=== PATIENT | male | born 1990 | race Hispanic/Latino ===

== ENCOUNTER 2017-10-10 11:30 | Emergency (ER) | payer BC, SELFPAY ==
--- NOTE | 2017-10-10 14:27 | ER ---
Nurse's Notes [facility] Name: Wally Mascorro Age: 27 yrs Sex: Male : 1990 Arrival Date: 10/10/2017 Time: 11:33 Bed Waiting Private MD: [place], None Diagnosis: Presentation: 10/10 11:43 Presenting complaint: Patient states: episodic epigastric pain lasting a few minutes x aa5 1 month ago. Pt reports nausea, denies vomiting, denies diarrhea. Transition of care: patient was not received from another setting of care. Onset of symptoms was September 2017. Risk Assessment: Do you want to hurt yourself or someone else? Patient reports no desire to harm self or others. Initial Sepsis Screen: Does the patient meet any 2 criteria? No. Patient's initial sepsis screen is negative. Does the patient have a suspected source of infection? No. Patient's initial sepsis screen is negative. Care prior to arrival: None. 11:43 Method Of Arrival: Ambulatory aa5 11:43 Acuity: LIBRADO 3 aa5 Historical: - Allergies: 11:43 No Known Allergies; aa5 - PMHx: 11:43 None; aa5 - PSHx: 11:43 None; aa5 - Immunization history:: Adult Immunizations up to date. - Social history:: Smoking status: Patient uses tobacco products, smokes one-half pack cigarettes per day. - Ebola Screening: : No symptoms or risks identified at this time. Vital Signs: 11:44 BP 124 / 86; Pulse 82; Resp 18 S; Temp 98.1(TE); Pulse Ox 97% on R/A; Weight 86.18 kg aa5 (R); Height 5 ft. 8 in. (172.72 cm) (R); Pain 9/10; 11:44 Body Mass Index 28.89 (86.18 kg, 172.72 cm) aa5 ED Course: 11:33 Patient arrived in ED. mr 11:33 None, None is Private Physician. mr 11:43 Triage completed. aa5 11:43 Arm band placed on. aa5 14:26 Alejandrina Isaac, RN is Primary Nurse. iw Administered Medications: No medications were administered Outcome: 14:25 Eloped from waiting room, before seeing physician Time discovered patient gone: October at 14:25 14:26 Patient left the ED. iw Signatures: Bettina Magana Irene, RN RN iw Marcia Crabtree, RN RN aa5
[2017-10-10 14:30] VITALS: BP 124/86; TEMP 98.1; O2SAT 97
== END 2017-10-10 14:26 | disposition left against medical advice (07) ==
LOC: ER 11:30
DX: Z53.21 Procedure and treatment not carried out due to patient leaving prior to being seen by health care provider (principal)
CPT/HCPCS: 99281

== ENCOUNTER 2017-12-25 23:35 | Emergency (ER) | payer SELFPAY ==
--- NOTE | 2017-12-26 00:06 | ER ---
Nurse's Notes [facility] Name: Wally Mascorro Age: 27 yrs Sex: Male : 1990 Arrival Date: 12/25/2017 Time: 23:36 Bed 15 Private MD: Diagnosis: Dental caries;Dentalgia Presentation: 12/25 23:53 Presenting complaint: Patient states: he is having a really bad toothache x 3 days he bb had dentist appt tomorrow but he can't sleep has tried motrin but nothing is helping. Transition of care: patient was not received from another setting of care. Onset of symptoms was December 22, 2017. Risk Assessment: Do you want to hurt yourself or someone else? Patient reports no desire to harm self or others. Initial Sepsis Screen: Does the patient meet any 2 criteria? No. Patient's initial sepsis screen is negative. Does the patient have a suspected source of infection? No. Patient's initial sepsis screen is negative. Care prior to arrival: None. 23:53 Method Of Arrival: Ambulatory bb 23:53 Acuity: LIBRADO 4 bb Historical: - Allergies: 23:56 No Known Allergies; bb - Home Meds: 23:56 None [Active]; bb - PMHx: 23:56 None; bb - PSHx: 23:56 dental; bb - Immunization history:: Adult Immunizations up to date. - Social history:: Smoking status: Patient uses tobacco products, smokes one-half pack cigarettes per day, Patient uses alcohol, occasionally. Patient/guardian denies using alcohol. - Ebola Screening: : No symptoms or risks identified at this time. Screenin/20 00:03 Abuse screen: Denies threats or abuse. Nutritional screening: No deficits noted. ea Tuberculosis screening: No symptoms or risk factors identified. Fall Risk None identified. Assessment: 00:01 General: Appears uncomfortable, Behavior is calm, cooperative, appropriate for age. ea Pain:. Neuro: Level of Consciousness is awake, alert, obeys commands, Oriented to person, place, time. Cardiovascular: Heart tones S1 S2 present Patient's skin is warm and dry. Respiratory: Airway is patent Respiratory effort is even, unlabored, Respiratory pattern is regular, symmetrical. GI: No signs and/or symptoms were reported involving the gastrointestinal system. : No signs and/or symptoms were reported regarding the genitourinary system. EENT: Reports toothache. Derm: Skin is pink, warm \T\ dry. 00:21 Reassessment: Patient and/or family updated on plan of care and expected duration. Pain ea level reassessed. Patient is alert, oriented x 3, equal unlabored respirations, skin warm/dry/pink. Discharge instructions given to patient, verbalized the understanding of instruction. Vital Signs: 12/25 23:56 BP 136 / 96; Pulse 54; Resp 16 S; Temp 98.5(O); Pulse Ox 99% on R/A; Weight 86.18 kg bb (R); Height 5 ft. 8 in. (172.72 cm) (R); Pain 10/10; 12/26 00:22 BP 128 / 88; Pulse 56; Resp 16; Pulse Ox 98% ; Pain 7/10; ea 12/25 23:56 Body Mass Index 28.89 (86.18 kg, 172.72 cm) bb ED Course: 12/25 23:36 Patient arrived in ED. am2 23:53 Ayad Waldron PA is PHCP. jr8 23:53 Damon Esquivel MD is Attending Physician. jr8 23:55 Triage completed. bb 23:56 Arm band placed on Patient placed in an exam room, on a stretcher, on pulse oximetry. bb Family accompanied patient. 12/26 00:01 Paulette Vidal, RN is Primary Nurse. ea 00:03 Patient has correct armband on for positive identification. Bed in low position. Call ea light in reach. 00:22 No provider procedures requiring assistance completed. Patient did not have IV access ea during this emergency room visit. Administered Medications: 00:11 Drug: TORadol 60 mg Route: IM; Site: right gluteus; ea 00:23 Follow up: Response: No adverse reaction; Pain is decreased ea 00:11 Drug: [place] 10 mg-325 mg 1 tabs Route: PO; ea 00:23 Follow up: Response: No adverse reaction ea Outcome: 00:05 Discharge ordered by . jr8 00:22 Discharged to home ambulatory, with friend. ea 00:22 Condition: improved 00:22 Discharge instructions given to patient, Instructed on discharge instructions, follow up and referral plans. medication usage, Demonstrated understanding of instructions, follow-up care, medications, Prescriptions given X 3. 00:24 Patient left the ED. ea Signatures: Veronica Johnson, RN RN Ayad Balbuena PA PA jr8 Bambi Barth am2 Paulette Vidal RN RN ea
--- NOTE | 2017-12-26 00:06 | EDPHYS ---
Physician Documentation [facility] Name: Wally Mascorro Age: 27 yrs Sex: Male : 1990 Arrival Date: 12/25/2017 Time: 23:36 Bed 15 Private MD: ED Physician Damon Esquivel HPI: 12/26 00:02 This 27 yrs old Male presents to ER via Ambulatory with complaints of jr8 Toothache. 00:02 The patient presents with pain. The problem is located in the mouth. Onset: The jr8 symptoms/episode began/occurred acutely, yesterday. Duration: The symptoms are continuous. Modifying factors: The symptoms are alleviated by nothing, the symptoms are aggravated by chewing, cold fluids, talking. Associated signs and symptoms: The patient has no apparent associated signs or symptoms. Severity of symptoms: At their worst the symptoms were moderate, in the emergency department the symptoms are unchanged. The patient has experienced a previous episode. The patient has not recently seen a physician. Historical: - Allergies: 12/25 23:56 No Known Allergies; bb - Home Meds: 23:56 None [Active]; bb - PMHx: 23:56 None; bb - PSHx: 23:56 dental; bb - Immunization history:: Adult Immunizations up to date. - Social history:: Smoking status: Patient uses tobacco products, smokes one-half pack cigarettes per day, Patient uses alcohol, occasionally. Patient/guardian denies using alcohol. - Ebola Screening: : No symptoms or risks identified at this time. ROS: 12/26 00:02 Eyes: Negative for injury, pain, redness, and discharge, Neck: Negative for injury, jr8 pain, and swelling, Cardiovascular: Negative for chest pain, palpitations, and edema, Respiratory: Negative for shortness of breath, cough, wheezing, and pleuritic chest pain, Abdomen/GI: Negative for abdominal pain, nausea, vomiting, diarrhea, and constipation, Back: Negative for injury and pain, MS/Extremity: Negative for injury and deformity, Skin: Negative for injury, rash, and discoloration, Neuro: Negative for headache, weakness, numbness, tingling, and seizure. ENT: Positive for dental pain. Exam: 00:02 Eyes: Pupils equal round and reactive to light, extra-ocular motions intact. Lids and jr8 lashes normal. Conjunctiva and sclera are non-icteric and not injected. Cornea within normal limits. Periorbital areas with no swelling, redness, or edema. Neck: Trachea midline, no thyromegaly or masses palpated, and no cervical lymphadenopathy. Supple, full range of motion without nuchal rigidity, or vertebral point tenderness. No Meningismus. Cardiovascular: Regular rate and rhythm with a normal S1 and S2. No gallops, murmurs, or rubs. Normal PMI, no JVD. No pulse deficits. Respiratory: Lungs have equal breath sounds bilaterally, clear to auscultation and percussion. No rales, rhonchi or wheezes noted. No increased work of breathing, no retractions or nasal flaring. Abdomen/GI: Soft, non-tender, with normal bowel sounds. No distension or tympany. No guarding or rebound. No evidence of tenderness throughout. Back: No spinal tenderness. No costovertebral tenderness. Full range of motion. Skin: Warm, dry with normal turgor. Normal color with no rashes, no lesions, and no evidence of cellulitis. MS/ Extremity: Pulses equal, no cyanosis. Neurovascular intact. Full, normal range of motion. Neuro: Awake and alert, GCS 15, oriented to person, place, time, and situation. Cranial nerves II-XII grossly intact. Motor strength 5/5 in all extremities. Sensory grossly intact. Cerebellar exam normal. Normal gait. 00:02 ENT: External ear(s): are unremarkable, Ear canal(s): are normal, clear, TM's: are normal, no evidence of bulging, no dullness, no erythema, no fluid levels, no hemotympanum, no rupture, normal bony landmarks, normal mobility, Nose: is normal, Mouth: Lips: moist, Oral mucosa: pink and intact, moist, Gums: reddened, swollen, on the lower left first molar, Tongue: is normal, Posterior pharynx: Airway: patent, Tonsils: are normal in appearance, no enlargement, no erythema, no exudate, no ulcerations, Uvula: midline, non-edematous, no erythema, swelling, is not appreciated, erythema, is not appreciated, Dental exam: dental caries, that is moderate, specifically in the lower left second molar (#18) and lower left first molar (#19), gum swelling, that is mild, specifically in the lower left first molar (#19), pain, that is moderate, specifically in the lower left first molar (#19). Vital Signs: 12/25 23:56 BP 136 / 96; Pulse 54; Resp 16 S; Temp 98.5(O); Pulse Ox 99% on R/A; Weight 86.18 kg bb (R); Height 5 ft. 8 in. (172.72 cm) (R); Pain 10/10; 12/26 00:22 BP 128 / 88; Pulse 56; Resp 16; Pulse Ox 98% ; Pain 7/10; ea 12/25 23:56 Body Mass Index 28.89 (86.18 kg, 172.72 cm) bb MDM: 12/25 23:59 Patient medically screened. jr8 12/26 00:02 Data reviewed: vital signs, nurses notes, and as a result, I will discharge patient. jr8 Data interpreted: Pulse oximetry: on room air is 99 %. Interpretation: normal. Counseling: I had a detailed discussion with the patient and/or guardian regarding: the historical points, exam findings, and any diagnostic results supporting the discharge/admit diagnosis, the need for outpatient follow up, a dentist, to return to the emergency department if symptoms worsen or persist or if there are any questions or concerns that arise at home. Administered Medications: 00:11 Drug: TORadol 60 mg Route: IM; Site: right gluteus; ea 00:23 Follow up: Response: No adverse reaction; Pain is decreased ea 00:11 Drug: [place] 10 mg-325 mg 1 tabs Route: PO; ea 00:23 Follow up: Response: No adverse reaction ea Disposition: 06:52 Co-signature as Attending Physician, Damon Esquivel MD I agree with the assessment and ps1 plan of care. Disposition: 12/26/17 00:05 Discharged to Home. Impression: Dental caries, Dentalgia . - Condition is Stable. - Discharge Instructions: Dental Abscess, Dental Caries, Adult. - Prescriptions for Amoxicillin 875 mg Oral Tablet - take 1 tablet by ORAL route every 12 hours for 10 days; 20 tablet. Ibuprofen 800 mg Oral Tablet - take 1 tablet by ORAL route every 12 hours As needed take with food; 20 tablet. Ultracet 37.5- 325 mg Oral Tablet - take 2 tablet by ORAL route every 6 hours - for up to 5 days; do not exceed 8 tablets per day.; 30 tablet. - Medication Reconciliation Form, Thank You Letter, Antibiotic Education, Prescription Opioid Use form. - Follow up: Private Physician; When: Tomorrow; Reason: Recheck today's complaints, Continuance of care, Re-evaluation by your physician. - Problem is new. - Symptoms have improved. Signatures: Veronica Johnson RN RN Ayad Balbuena PA PA jr8 Paulette Vidal RN RN ea Singer, Phillip, MD MD ps1 Corrections: (The following items were deleted from the chart) 00:24 00:05 12/26/2017 00:05 Discharged to Home. Impression: Dental caries; Dentalgia . ea Condition is Stable. Forms are Medication Reconciliation Form, Thank You Letter, Antibiotic Education, Prescription Opioid Use. Follow up: Private Physician; When: Tomorrow; Reason: Recheck today's complaints, Continuance of care, Re-evaluation by your physician. Problem is new. Symptoms have improved. jr8
[2017-12-26] MEDS ORDERED: HYDROCODONE/APAP 10/325 TAB ONE (00:11)
[2017-12-26] MEDS ORDERED: KETOROLAC 30 MG/ML INJ ONE (00:12)
[2017-12-26 00:37] VITALS: TEMP 98.5
[2017-12-26 00:38] VITALS: BP 128/88; O2SAT 98
== END 2017-12-26 00:24 | disposition home or self-care (01) ==
LOC: ER 23:35
DX: K02.9 Dental caries, unspecified (principal); F17.210 Nicotine dependence, cigarettes, uncomplicated
CPT/HCPCS: 96372; 99283

== ENCOUNTER 2018-08-30 22:14 | Emergency (ER) | payer SELFPAY ==
[2018-08-30 23:12] LABS: Absolute Monocytes 0.8 K/uL (0.1-1.3); Absolute Neutrophil 4.7 K/uL (1.8-8.0); Basophils % 0.5 % (0-1.3); Eosinophils % 1.7 % (0-4.4); Hematocrit 41.6 % (39.6-49.0); Lymphocytes % 34.3 % (15.3-44.8); MPV 8.9 fL (7.6-11.3); Monocytes % 8.9 % (3.3-12.3); RBC Red Blood Cell Count 4.61 M/uL (4.33-5.43)
[2018-08-30 23:18] LABS: Urine Blood 2+ (NEG); Urine Glucose NEGATIVE (NEG); Urine Protein TRACE (NEG); Urine Specific Gravity >1.030 (1.005-1.030); Urine pH 5.5 (5.0-7.0)
[2018-08-30] MEDS ORDERED: ONDANSETRON 4 MG/2 ML VIAL ONE (23:31)
[2018-08-30] MEDS ORDERED: FAMOTIDINE 20 MG/2 ML VIAL IV ONE (23:31)
[2018-08-30] MEDS ORDERED: NA CHLORIDE 0.9% 1,000 ML ONE (23:31)
[2018-08-30 23:33] LABS: Bilirubin Direct 0.1 mg/dL (0-0.2); Bilirubin Total 0.3 mg/dL (0.2-1.0); Potassium 3.8 mmol/L (3.5-5.1); Protein, Total 7.5 g/dL (6.4-8.2)
[2018-08-30 23:59] LABS: Urine Bacteria <20 /HPF (NONE SEEN); Urine Culture Reflex Order NOT NEEDED; Urine Mucus 3+ /HPF (NONE SEEN); Urine RBC <5 /HPF (NONE SEEN)
--- NOTE | 2018-08-31 00:57 | EDPHYS ---
Physician Documentation [facility] Name: Wally Mascorro Age: 28 yrs Sex: Male : 1990 Arrival Date: 08/30/2018 Time: 22:14 Bed 30 Private MD: ED Physician En Medrano HPI: 08/30 22:55 This 28 yrs old Male presents to ER via Ambulatory with complaints of Fever, cp Vomiting. 22:55 The patient reports fever, not measured (subjective). cp 22:55 Onset: The symptoms/episode began/occurred today, while at work. Associated signs and cp symptoms: Pertinent positives: nausea, vomiting, epigastric pain. Severity of symptoms: in the emergency department the symptoms have improved mildly. Patient reports he was at work this afternoon when he started having nausea and vomiting. Patient reports having fever and abdominal pain. Historical: - Allergies: 22:24 No Known Allergies; ed1 - Home Meds: 22:24 None [Active]; ed1 - PMHx: 22:24 None; ed1 - PSHx: 22:24 None; ed1 - Immunization history:: Adult Immunizations up to date. - Social history:: Smoking status: Patient uses tobacco products, smokes one-half pack cigarettes per day. - Ebola Screening: : Patient negative for fever greater than or equal to 101.5 degrees Fahrenheit, and additional compatible Ebola Virus Disease symptoms Patient denies exposure to infectious person Patient denies travel to an Ebola-affected area in the 21 days before illness onset No symptoms or risks identified at this time. ROS: 23:00 Constitutional: Negative for body aches, chills, fever, poor PO intake. cp 23:00 Eyes: Negative for injury, pain, redness, and discharge. cp 23:00 ENT: Negative for drainage from ear(s), ear pain, sore throat, difficulty swallowing, difficulty handling secretions. 23:00 Cardiovascular: Negative for chest pain, palpitations. 23:00 Respiratory: Negative for cough, shortness of breath, wheezing. 23:00 Abdomen/GI: Positive for abdominal pain, nausea, vomiting, of the epigastric area, Negative for diarrhea, constipation, anorexia, hematemesis, black/tarry stool, rectal bleeding. 23:00 Back: Negative for pain at rest, pain with movement, radiated pain. 23:00 : Negative for urinary symptoms, testicular pain 23:00 Skin: Negative for cellulitis, rash. 23:00 Neuro: Negative for altered mental status, headache, weakness. 23:00 All other systems are negative. Exam: 23:05 Constitutional: The patient appears in no acute distress, alert, awake, non-toxic, well cp developed, well nourished. 23:05 Head/Face: Normocephalic, atraumatic. cp 23:05 Eyes: Periorbital structures: appear normal, Conjunctiva: normal, no exudate, no injection, Sclera: no appreciated abnormality, Lids and lashes: appear normal, bilaterally. 23:05 ENT: External ear(s): are unremarkable, Ear canal(s): are normal, clear, TM's: are normal, Nose: is normal, Mouth: Lips: moist, Oral mucosa: moist, Posterior pharynx: is normal, airway is patent, no erythema, no exudate. 23:05 Chest/axilla: Inspection: normal, Palpation: is normal, no crepitus, no tenderness. 23:05 Cardiovascular: Rate: normal, Rhythm: regular. 23:05 Respiratory: the patient does not display signs of respiratory distress, Respirations: normal, no use of accessory muscles, no retractions, no splinting, no tachypnea, labored breathing, is not present, Breath sounds: are clear throughout, no decreased breath sounds, no stridor, no wheezing. 23:05 Abdomen/GI: Inspection: abdomen appears normal, Bowel sounds: active, all quadrants, Palpation: soft, in all quadrants, mild abdominal tenderness, in the epigastric area, rebound tenderness, is not appreciated, voluntary guarding, is not appreciated, involuntary guarding, is not appreciated. 23:05 Back: pain, is absent, ROM is normal. Vital Signs: 22:24 BP 122 / 81; Pulse 72; Resp 16; Temp 98.3(O); Pulse Ox 98% on R/A; Weight 83.91 kg; ed1 Height 5 ft. 8 in. (172.72 cm); Pain 3/10; 23:10 BP 103 / 75; Pulse 70; Resp 18; Pulse Ox 100% on R/A; Pain 4/10; mg2 08/31 00:18 BP 104 / 74; Pulse 65; Resp 18; Pulse Ox 100% on R/A; Pain 0/10; mg2 08/30 22:24 Body Mass Index 28.13 (83.91 kg, 172.72 cm) ed1 MDM: 08/30 22:28 Patient medically screened. 08/31 00:00 Differential diagnosis: gastroenteritis, cholelithiasis, pancreatitis, gastritis. cp 00:55 Data reviewed: vital signs, nurses notes, lab test result(s), radiologic studies, plain cp films, and as a result, I will discharge patient. 00:55 Counseling: I had a detailed discussion with the patient and/or guardian regarding: the cp historical points, exam findings, and any diagnostic results supporting the discharge/admit diagnosis, lab results, radiology results, to return to the emergency department if symptoms worsen or persist or if there are any questions or concerns that arise at home. Special discussion: Based on the patient's Hx, exam, and Dx evaluation, there is no indication for emergent surgery or inpatient Tx. It is understood by the patient/guardian that if the Sx's persist or worsen they need to return immediately for re-evaluation. ED course: VSS. Nausea and pain improved with meds. Will discharge to home for continued monitoring. 08/30 22:50 Order name: Basic Metabolic Panel; Complete Time: 23:54 mg2 08/30 23:54 Interpretation: Normal except: CL 109; GFR 76. 08/30 22:50 Order name: CBC with Diff; Complete Time: 23:54 mg2 08/30 23:55 Interpretation: Reviewed. 08/30 22:50 Order name: Creatinine for Radiology; Complete Time: 23:54 mg2 08/30 22:50 Order name: Hepatic Function; Complete Time: 23:54 mg2 08/30 23:55 Interpretation: Within normal limits. 08/30 22:50 Order name: Lipase; Complete Time: 23:54 mg2 08/30 23:55 Interpretation: Within normal limits: LIP 138. 08/30 23:06 Order name: Urine Microscopic Only; Complete Time: 00:09 mg2 08/31 00:09 Interpretation: Abnormal: MUCUS 3+. 08/30 22:50 Order name: IV Saline Lock; Complete Time: 23:06 mg2 08/30 23:13 Order name: Urine Dipstick--Ancillary (enter results); Complete Time: 23:54 mw2 08/30 23:54 Interpretation: Normal except: USPGR >1.030; UBLD 2+. cp 08/30 23:19 Order name: Creatine Phosphokinase; Complete Time: 23:54 EDMS 08/30 23:55 Interpretation: Abnormal: CPK 319. cp 08/31 00:11 Order name: XRAY Abdomen With Erect cp 08/30 22:50 Order name: Labs collected and sent; Complete Time: 23:06 mg2 08/30 23:06 Order name: Urine Dipstick-Ancillary (obtain specimen); Complete Time: 23:06 mg2 08/30 23:56 Order name: PO challenge; Complete Time: 00:07 cp Administered Medications: 08/30 23:25 Drug: Pepcid 20 mg Route: IVP; Site: right antecubital; mg2 23:49 Follow up: Response: No adverse reaction; Marked relief of symptoms mg2 23:26 Drug: NS 0.9% 1000 ml Route: IV; Rate: 1 bolus; Site: right antecubital; mg2 23:49 Follow up: Response: No adverse reaction; IV Status: Completed infusion mg2 23:26 Drug: Zofran 4 mg Route: IVP; Site: right antecubital; mg2 23:49 Follow up: Response: No adverse reaction; Marked relief of symptoms mg2 Disposition: 08/31/18 00:56 Discharged to Home. Impression: Vomiting, unspecified, Epigastric pain. - Condition is Stable. - Discharge Instructions: Abdominal Pain, Adult, Vomiting, Adult. - Prescriptions for Pepcid 20 mg Oral Tablet - take 1 tablet by ORAL route every 12 hours for 5 days; 10 tablet. Zofran 4 mg Oral Tablet - take 1 tablet by ORAL route every 12 hours As needed; 20 tablet. - Work release form, Medication Reconciliation Form, Thank You Letter, Antibiotic Education, Prescription Opioid Use form. - Follow up: Private Physician; When: 1 - 2 days; Reason: Worsening of condition. - Problem is new. - Symptoms have improved. Addendum: 09/02/2018 07:24 Co-signature as Attending Physician, En Medrano MD. r n Signatures: Dispatcher [employer] EDIN En Medrano MD MD rn Riggs, Erika RN RN ed1 Georges Walker PA PA Kartik Nicolas RN RN mg2 Corrections: (The following items were deleted from the chart) 08/30 23:18 23:16 CREATINE PHOSPHOKINASE+[id number].LAB.BRZ ordered. EDIN EDMS 08/31 01:06 00:56 08/31/2018 00:56 Discharged to Home. Impression: Vomiting, unspecified; mg2 Epigastric pain. Condition is Stable. Forms are Medication Reconciliation Form, Thank You Letter, Antibiotic Education, Prescription Opioid Use. Follow up: Private Physician; When: 1 - 2 days; Reason: Worsening of condition. Problem is new. Symptoms have improved. cp
--- NOTE | 2018-08-31 00:57 | ER ---
Nurse's Notes [facility] Name: Wally Mascorro Age: 28 yrs Sex: Male : 1990 Arrival Date: 08/30/2018 Time: 22:14 Bed 30 Private MD: Diagnosis: Vomiting, unspecified;Epigastric pain Presentation: 08/30 22:23 Presenting complaint: Patient states: I was at work today and I didn't eat anything for ed1 breakfast and then after lunch I went back to work and got really hot and started vomiting. Transition of care: patient was not received from another setting of care. Onset of symptoms was August 30, 2018. Risk Assessment: Do you want to hurt yourself or someone else? Patient reports no desire to harm self or others. Initial Sepsis Screen: Does the patient meet any 2 criteria? No. Patient's initial sepsis screen is negative. Does the patient have a suspected source of infection? No. Patient's initial sepsis screen is negative. Care prior to arrival: None. 22:23 Method Of Arrival: Ambulatory ed1 22:23 Acuity: LIBRADO 3 ed1 Triage Assessment: 22:24 General: Appears in no apparent distress. Behavior is calm, cooperative. Pain: ed1 Complains of pain in abdomen Pain currently is 3 out of 10 on a pain scale. GI: Reports vomiting. Historical: - Allergies: 22:24 No Known Allergies; ed1 - Home Meds: 22:24 None [Active]; ed1 - PMHx: 22:24 None; ed1 - PSHx: 22:24 None; ed1 - Immunization history:: Adult Immunizations up to date. - Social history:: Smoking status: Patient uses tobacco products, smokes one-half pack cigarettes per day. - Ebola Screening: : Patient negative for fever greater than or equal to 101.5 degrees Fahrenheit, and additional compatible Ebola Virus Disease symptoms Patient denies exposure to infectious person Patient denies travel to an Ebola-affected area in the 21 days before illness onset No symptoms or risks identified at this time. Screenin:09 Abuse screen: Denies threats or abuse. Denies injuries from another. Nutritional mg2 screening: No deficits noted. Tuberculosis screening: No symptoms or risk factors identified. Fall Risk IV access (20 points). Assessment: 23:07 General: Appears in no apparent distress. comfortable, Behavior is calm, cooperative. mg2 Pain: Complains of pain in abdomen Pain does not radiate. Pain currently is 4 out of 10 on a pain scale. Quality of pain is described as aching, Pain began gradually, this afternoon Is intermittent. Neuro: Level of Consciousness is awake, alert, obeys commands, Oriented to person, place, time, situation. Cardiovascular: Capillary refill < 3 seconds Patient's skin is warm and dry. Respiratory: Airway is patent Respiratory effort is even, unlabored, Respiratory pattern is regular, symmetrical. GI: Abdomen is flat, non-distended, Reports lower abdominal pain, upper abdominal pain, nausea, vomiting, since afternoon. : Urine is clear. EENT: No signs and/or symptoms were reported regarding the EENT system. Derm: Skin is intact, is healthy with good turgor, Skin is pink, warm \T\ dry. normal. Musculoskeletal: Circulation, motion, and sensation intact. Capillary refill < 3 seconds. 08/31 01:05 Reassessment: Patient appears in no apparent distress at this time. Patient and/or mg2 family updated on plan of care and expected duration. Pain level reassessed. Patient is alert, oriented x 3, equal unlabored respirations, skin warm/dry/pink. Patient denies pain at this time. Patient states feeling better. Vital Signs: 08/30 22:24 BP 122 / 81; Pulse 72; Resp 16; Temp 98.3(O); Pulse Ox 98% on R/A; Weight 83.91 kg; ed1 Height 5 ft. 8 in. (172.72 cm); Pain 3/10; 23:10 BP 103 / 75; Pulse 70; Resp 18; Pulse Ox 100% on R/A; Pain 4/10; mg2 08/31 00:18 BP 104 / 74; Pulse 65; Resp 18; Pulse Ox 100% on R/A; Pain 0/10; mg2 08/30 22:24 Body Mass Index 28.13 (83.91 kg, 172.72 cm) ed1 ED Course: 08/30 22:14 Patient arrived in ED. am2 22:24 Triage completed. ed1 22:24 Arm band placed on right wrist. Patient placed in waiting room, Patient notified of ed1 wait time. 22:28 Georges Walker PA is PHCP. cp 22:28 En Medrano MD is Attending Physician. cp 22:47 Kartik Chacko, RN is Primary Nurse. mg2 23:09 No provider procedures requiring assistance completed. Inserted saline lock: 20 gauge mg2 in right antecubital area, using aseptic technique. Blood collected. 23:10 Patient has correct armband on for positive identification. Bed in low position. Side mg2 rails up X 1. Pulse ox on. NIBP on. Door closed. Warm blanket given. 08/31 00:33 Patient moved to radiology via wheelchair. kw 00:33 X-ray completed. Patient tolerated procedure well. kw 00:33 Patient moved back from radiology. kw 00:34 XRAY Abdomen With Erect In Process Unspecified. EDMS 01:05 IV discontinued, intact, bleeding controlled, No redness/swelling at site. Pressure mg2 dressing applied. Administered Medications: 08/30 23:25 Drug: Pepcid 20 mg Route: IVP; Site: right antecubital; mg2 23:49 Follow up: Response: No adverse reaction; Marked relief of symptoms mg2 23:26 Drug: NS 0.9% 1000 ml Route: IV; Rate: 1 bolus; Site: right antecubital; mg2 23:49 Follow up: Response: No adverse reaction; IV Status: Completed infusion mg2 23:26 Drug: Zofran 4 mg Route: IVP; Site: right antecubital; mg2 23:49 Follow up: Response: No adverse reaction; Marked relief of symptoms mg2 Outcome: 08/31 00:56 Discharge ordered by . cp 01:05 Discharged to home ambulatory. mg2 01:05 Condition: stable 01:05 Discharge instructions given to patient, Instructed on discharge instructions, follow up and referral plans. medication usage, Demonstrated understanding of instructions, follow-up care, medications, Prescriptions given X 2. 01:06 Patient left the ED. mg2 Signatures: Dispatcher [employer] EDMS Jessika Fermin RN RN ed1 Joleen Montanez Corey, PA PA Bambi Reyna am2 Kartik Chacko, RN RN mg2
[2018-08-31 02:06] VITALS: TEMP 98.3
[2018-08-31 02:08] VITALS: O2SAT 100
[2018-08-31 02:10] VITALS: BP 104/74
--- NOTE | 2018-08-31 08:32 | RAD REPORT ---
EXAM DESCRIPTION: RAD - Abdomen W Erect - 08/31/2018 12:36 am CLINICAL HISTORY: Abdominal pain FINDINGS: The bowel gas pattern is unremarkable with moderate amount of stool throughout the colon. No abnormal calcification is displayed.
== END 2018-08-31 01:06 | disposition home or self-care (01) ==
LOC: ER 22:14
DX: R11.2 Nausea with vomiting, unspecified (principal); R10.13 Epigastric pain; F17.210 Nicotine dependence, cigarettes, uncomplicated
CPT/HCPCS: 36415; 74019; 80048; 80076; 81003; 81015; 82550; 83690; 85025; 96374; 96375; 99284; J2405; J7030

== ENCOUNTER 2018-09-12 19:37 | Emergency (ER) | payer SELFPAY ==
--- NOTE | 2018-09-12 21:03 | EDPHYS ---
Physician Documentation [facility] Name: Wally Mascorro Age: 28 yrs Sex: Male : 1990 Arrival Date: 09/12/2018 Time: 19:39 Bed 25 Private MD: ED Physician Thomas Zaldivar HPI: 09/12 21:03 This 28 yrs old Male presents to ER via Ambulatory with complaints of Cough, tw4 Sore Throat. 21:03 The patient or guardian reports cough, that is constant. The patient or guardian tw4 reports SORE THROAT. Onset: The symptoms/episode began/occurred today. Severity of symptoms: At their worst the symptoms were moderate, in the emergency department the symptoms are unchanged. Modifying factors: The symptoms are alleviated by nothing, the symptoms are aggravated by nothing. Associated signs and symptoms: The patient has no apparent associated signs or symptoms. The patient has not experienced similar symptoms in the past. Historical: - Allergies: 19:45 No Known Allergies; ed1 - Home Meds: 19:45 None [Active]; ed1 - PMHx: 19:45 None; ed1 - PSHx: 19:45 None; ed1 - Immunization history:: Adult Immunizations unknown. - Social history:: Smoking status: Patient uses tobacco products, smokes one-half pack cigarettes per day. - Ebola Screening: : Patient negative for fever greater than or equal to 101.5 degrees Fahrenheit, and additional compatible Ebola Virus Disease symptoms Patient denies exposure to infectious person Patient denies travel to an Ebola-affected area in the 21 days before illness onset No symptoms or risks identified at this time. ROS: 21:03 Constitutional: Negative for fever, chills, and weight loss, Eyes: Negative for injury, tw4 pain, redness, and discharge, Cardiovascular: Negative for chest pain, palpitations, and edema, Abdomen/GI: Negative for abdominal pain, nausea, vomiting, diarrhea, and constipation, Back: Negative for injury and pain, MS/Extremity: Negative for injury and deformity, Skin: Negative for injury, rash, and discoloration. 21:03 Respiratory: Positive for cough, Negative for dyspnea on exertion, hemoptysis, orthopnea, pleurisy, shortness of breath, sputum production. Exam: 21:03 Constitutional: This is a well developed, well nourished patient who is awake, alert, tw4 and in no acute distress. Head/Face: Normocephalic, atraumatic. Neck: Trachea midline, no thyromegaly or masses palpated, and no cervical lymphadenopathy. Supple, full range of motion without nuchal rigidity, or vertebral point tenderness. No Meningismus. Chest/axilla: Normal chest wall appearance and motion. Nontender with no deformity. No lesions are appreciated. Cardiovascular: Regular rate and rhythm with a normal S1 and S2. No gallops, murmurs, or rubs. Normal PMI, no JVD. No pulse deficits. Respiratory: Lungs have equal breath sounds bilaterally, clear to auscultation and percussion. No rales, rhonchi or wheezes noted. No increased work of breathing, no retractions or nasal flaring. 21:03 ENT: Posterior pharynx: erythema, that is moderate. Vital Signs: 19:45 BP 125 / 69; Pulse 72; Resp 20; Temp 98.1(TE); Pulse Ox 98% on R/A; Weight 83.91 kg; ed1 Height 5 ft. 8 in. (172.72 cm); Pain 6/10; 20:00 BP 140 / 84; Pulse 80; Resp 18; Temp 98.2(O); Pulse Ox 98% on R/A; rv 20:45 BP 125 / 70; Pulse 72; Resp 19 S; Temp 98.3(O); Pulse Ox 99% on R/A; rv 20:45 BP 135 / 81; Pulse 77; Resp 17 S; Temp 98.2(O); Pulse Ox 98% on R/A; rv 21:15 BP 141 / 89; Pulse 80; Resp 18 S; Temp 98.2(O); Pulse Ox 100% on R/A; rv 19:45 Body Mass Index 28.13 (83.91 kg, 172.72 cm) ed1 MDM: 20:03 Patient medically screened. tw4 21:03 Differential Diagnosis: Obstructed Airway. Data reviewed: vital signs, nurses notes. tw4 Data interpreted: Pulse oximetry: Interpretation: normal. Counseling: I had a detailed discussion with the patient and/or guardian regarding: the historical points, exam findings, and any diagnostic results supporting the discharge/admit diagnosis. Special discussion: I discussed with the patient/guardian in detail that at this point there is no indication for admission to the hospital. It is understood, however, that if the symptoms persist or worsen the patient needs to return immediately for re-evaluation. 09/12 20:03 Order name: Strep; Complete Time: 21:01 tw4 09/12 20:29 Order name: Flu tw4 09/12 21:02 Order name: Throat Culture EDMS Administered Medications: No medications were administered Disposition: 09/12/18 21:03 Discharged to Home. Impression: Acute pharyngitis due to other specified organisms. - Condition is Stable. - Discharge Instructions: Pharyngitis, Sore Throat. - Medication Reconciliation Form, Thank You Letter, Antibiotic Education, Prescription Opioid Use, Work release form form. - Follow up: Private Physician; When: Upon discharge from the Emergency Department; Reason: If symptoms return, Recheck today's complaints, Continuance of care. - Problem is new. - Symptoms have improved. Signatures: Dispatcher [employer] EDMS Jessika Fermin RN RN ed1 Thomas Zaldivar MD MD tw4 Keaton Dickinson RN RN rv Corrections: (The following items were deleted from the chart) 21:33 21:03 09/12/2018 21:03 Discharged to Home. Impression: Acute pharyngitis due to other rv specified organisms. Condition is Stable. Forms are Medication Reconciliation Form, Thank You Letter, Antibiotic Education, Prescription Opioid Use. Follow up: Private Physician; When: Upon discharge from the Emergency Department; Reason: If symptoms return, Recheck today's complaints, Continuance of care. Problem is new. Symptoms have improved. tw4
--- NOTE | 2018-09-12 21:03 | ER ---
Nurse's Notes [facility] Name: Wally Mascorro Age: 28 yrs Sex: Male : 1990 Arrival Date: 09/12/2018 Time: 19:39 Bed 25 Private MD: Diagnosis: Acute pharyngitis due to other specified organisms Presentation: 09/12 19:44 Presenting complaint: Patient states: My kids have been sick with strep throat and I am ed1 having the same symptoms now. Transition of care: patient was not received from another setting of care. Onset of symptoms was September 09, 2018. Risk Assessment: Do you want to hurt yourself or someone else? Patient reports no desire to harm self or others. Initial Sepsis Screen: Does the patient meet any 2 criteria? No. Patient's initial sepsis screen is negative. Does the patient have a suspected source of infection? No. Patient's initial sepsis screen is negative. Care prior to arrival: None. 19:44 Method Of Arrival: Ambulatory ed1 19:44 Acuity: LIBRADO 4 ed1 Triage Assessment: 19:45 General: Appears in no apparent distress. Behavior is calm, cooperative. Pain: ed1 Complains of pain in throat Pain currently is 6 out of 10 on a pain scale. EENT: Reports nasal congestion pain when swallowing. Historical: - Allergies: 19:45 No Known Allergies; ed1 - Home Meds: 19:45 None [Active]; ed1 - PMHx: 19:45 None; ed1 - PSHx: 19:45 None; ed1 - Immunization history:: Adult Immunizations unknown. - Social history:: Smoking status: Patient uses tobacco products, smokes one-half pack cigarettes per day. - Ebola Screening: : Patient negative for fever greater than or equal to 101.5 degrees Fahrenheit, and additional compatible Ebola Virus Disease symptoms Patient denies exposure to infectious person Patient denies travel to an Ebola-affected area in the 21 days before illness onset No symptoms or risks identified at this time. Screenin:58 Abuse screen: Denies threats or abuse. Denies injuries from another. Nutritional rv screening: No deficits noted. Tuberculosis screening: No symptoms or risk factors identified. Fall Risk None identified. Assessment: 19:58 General: Appears in no apparent distress. comfortable, Behavior is calm, cooperative. rv Pain: Denies pain. Neuro: Level of Consciousness is awake, alert, obeys commands, Oriented to person, place, time, situation. Cardiovascular: Capillary refill < 3 seconds. Respiratory: Airway is patent Respiratory effort is even, unlabored, Breath sounds are clear. GI: No signs and/or symptoms were reported involving the gastrointestinal system. : No signs and/or symptoms were reported regarding the genitourinary system. EENT: Throat is clear. Derm: Skin is intact. Musculoskeletal: No signs and/or symptoms reported regarding the musculoskeletal system. 21:00 Reassessment: Patient appears in no apparent distress at this time. Patient and/or rv family updated on plan of care and expected duration. Pain level reassessed. Patient is alert, oriented x 3, equal unlabored respirations, skin warm/dry/pink. Vital Signs: 19:45 BP 125 / 69; Pulse 72; Resp 20; Temp 98.1(TE); Pulse Ox 98% on R/A; Weight 83.91 kg; ed1 Height 5 ft. 8 in. (172.72 cm); Pain 6/10; 20:00 BP 140 / 84; Pulse 80; Resp 18; Temp 98.2(O); Pulse Ox 98% on R/A; rv 20:45 BP 125 / 70; Pulse 72; Resp 19 S; Temp 98.3(O); Pulse Ox 99% on R/A; rv 20:45 BP 135 / 81; Pulse 77; Resp 17 S; Temp 98.2(O); Pulse Ox 98% on R/A; rv 21:15 BP 141 / 89; Pulse 80; Resp 18 S; Temp 98.2(O); Pulse Ox 100% on R/A; rv 19:45 Body Mass Index 28.13 (83.91 kg, 172.72 cm) ed1 ED Course: 19:39 Patient arrived in ED. am2 19:45 Triage completed. ed1 19:45 Arm band placed on right wrist. ed1 19:58 Patient has correct armband on for positive identification. Placed in gown. Bed in low rv position. Call light in reach. Side rails up X 1. Pulse ox on. NIBP on. Warm blanket given. 20:03 Thomas Zaldivar MD is Attending Physician. tw4 20:27 Fanny Hernandez, RN is Primary Nurse. ca1 21:25 Keaton Dickinson, RN is Primary Nurse. rv 21:33 No provider procedures requiring assistance completed. Patient did not have IV access rv during this emergency room visit. Administered Medications: No medications were administered Outcome: 21:03 Discharge ordered by . tw4 21:33 Discharged to home ambulatory. rv 21:33 Condition: stable 21:33 Discharge instructions given to patient, Instructed on discharge instructions, follow up and referral plans. Demonstrated understanding of instructions, follow-up care. 21:33 Patient left the ED. rv Signatures: Jessika Fermin RN RN ed1 Bambi Barth am2 Thomas Zaldivar MD MD tw4 Keaton Dickinson, RN RN rv Fanny Hernandez, BEBE RN ca1
[2018-09-12 22:45] VITALS: TEMP 98.2
[2018-09-12 22:48] VITALS: BP 141/89; O2SAT 100
== END 2018-09-12 21:33 | disposition home or self-care (01) ==
LOC: ER 19:37
DX: J02.8 Acute pharyngitis due to other specified organisms (principal); F17.210 Nicotine dependence, cigarettes, uncomplicated
CPT/HCPCS: 87070; 87081; 87804; 99283

== ENCOUNTER 2019-05-19 14:24 | Emergency (ER) | payer SELFPAY ==
--- OUTSIDE RECORDS SUMMARY | 2019-05-19 14:26 | XMS REPORT ---
:1990 [facility] Address [address] [place] [address] Dr. [place] [address] [place] [id number] Care Team Providers Name Role Phone Unavailable Unavailable Unavailable Problems This patient has no known problems. Allergies, Adverse Reactions, Alerts This patient has no known allergies or adverse reactions. Medications This patient has no known medications.
[2019-05-19] MEDS ORDERED: TETANUS & DIPHTHERIA TOX,ADULT 0.5 ML VIAL ONE (14:45)
[2019-05-19] MEDS ORDERED: AMOX/K CLAV 875 MG TAB ONE (14:45)
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
--- NOTE | 2019-05-19 16:01 | RAD REPORT ---
EXAM DESCRIPTION: RAD - Hand Right 3 View - 05/19/2019 3:36 pm CLINICAL HISTORY: Right hand pain following trauma, pain primarily fourth digit COMPARISON: April 2014 FINDINGS: No fracture is identified. There is no dislocation or periosteal reaction noted. Soft tis marisol swelling involves the fourth digit. No air or foreign body. IMPRESSION: No right hand fracture identified. Soft tissue swelling of the fourth digit noted.
[2019-05-19 16:12] VITALS: BP 116/83; TEMP 98.8; O2SAT 99
== END 2019-05-19 15:23 | disposition home or self-care (01) ==
LOC: ER 14:24
DX: S60.221A Contusion of right hand, initial encounter (principal); S60.511A Abrasion of right hand, initial encounter; W51.XXXA Accidental striking against or bumped into by another person, initial encounter; Y93.89 Activity, other specified; Y92.9 Unspecified place or not applicable; Z23 Encounter for immunization
CPT/HCPCS: 90471; 90714; 99284

== ENCOUNTER 2019-12-21 15:07 | Emergency (ER) | payer SELFPAY ==
--- OUTSIDE RECORDS SUMMARY | 2019-12-21 15:09 | XMS REPORT | Continuity of Care Document ---
:1990 Author Organization [facility] t Address [address] [place] [address] Dr. [place] [address] [place] [id number] Care Team Providers Name Role Phone Unavailable Unavailable Unavailable Problems This patient has no known problems. Allergies, Adverse Reactions, Alerts This patient has no known allergies or adverse reactions. Medications This patient has no known medications. Procedures This patient has no known procedures. Results This patient has no known results.
[2019-12-21] MEDS ORDERED: HYDROCODONE/APAP 5/325 MG TAB ONE (16:32)
[2019-12-21] MEDS ORDERED: KETOROLAC 30 MG/ML INJ ONE ×2 (16:32→16:39)
--- NOTE | 2019-12-21 17:14 | EDPHYS ---
Physician Documentation [facility] Name: Wally Mascorro Age: 29 yrs Sex: Male : 1990 Arrival Date: 12/21/2019 Time: 15:11 Bed 26 Private MD: ED Physician Long Taylor HPI: 12/20 16:58 This 29 yrs old Male presents to ER via Ambulatory with complaints of Hand snw Swelling. 16:58 The patient or guardian reports swelling, tenderness. The complaints affect the right snw hand diffusely. Context: The problem was sustained at an unknown location, resulted from an unknown cause. Onset: The symptoms/episode began/occurred suddenly. Modifying factors: The symptoms are alleviated by nothing, the symptoms are aggravated by movement, dependent position. Severity of symptoms: At their worst the symptoms were moderate, in the emergency department the symptoms are unchanged. The patient has not experienced similar symptoms in the past. The patient has not recently seen a physician. Historical: - Allergies: 15:29 No Known Allergies; jd3 - Home Meds: 15:29 None [Active]; jd3 - PMHx: 15:29 None; jd3 - PSHx: 15:29 None; jd3 - Immunization history:: Adult Immunizations up to date. - Social history:: Smoking status: Patient reports the use of cigarette tobacco products, smokes one pack cigarettes per day. ROS: 16:57 Constitutional: Negative for fever, chills, and weight loss, Eyes: Negative for injury, snw pain, redness, and discharge, ENT: Negative for injury, pain, and discharge, Neck: Negative for injury, pain, and swelling, Cardiovascular: Negative for chest pain, palpitations, and edema, Respiratory: Negative for shortness of breath, cough, wheezing, and pleuritic chest pain, Abdomen/GI: Negative for abdominal pain, nausea, vomiting, diarrhea, and constipation, Back: Negative for injury and pain, : Negative for injury, bleeding, discharge, and swelling, Skin: Negative for injury, rash, and discoloration, Neuro: Negative for headache, weakness, numbness, tingling, and seizure, Psych: Negative for depression, anxiety, suicide ideation, homicidal ideation, and hallucinations. 16:57 MS/extremity: Positive for decreased range of motion, swelling, tenderness, Negative for injury or acute deformity. Exam: 16:56 Constitutional: This is a well developed, well nourished patient who is awake, alert, snw and in no acute distress. Head/Face: Normocephalic, atraumatic. Eyes: Pupils equal round and reactive to light, extra-ocular motions intact. Lids and lashes normal. Conjunctiva and sclera are non-icteric and not injected. Cornea within normal limits. Periorbital areas with no swelling, redness, or edema. ENT: Nares patent. No nasal discharge, no septal abnormalities noted. Tympanic membranes are normal and external auditory canals are clear. Oropharynx with no redness, swelling, or masses, exudates, or evidence of obstruction, uvula midline. Mucous membranes moist. Neck: Trachea midline, no thyromegaly or masses palpated, and no cervical lymphadenopathy. Supple, full range of motion without nuchal rigidity, or vertebral point tenderness. No Meningismus. Chest/axilla: Normal chest wall appearance and motion. Nontender with no deformity. No lesions are appreciated. Cardiovascular: Regular rate and rhythm with a normal S1 and S2. No gallops, murmurs, or rubs. Normal PMI, no JVD. No pulse deficits. Respiratory: Lungs have equal breath sounds bilaterally, clear to auscultation and percussion. No rales, rhonchi or wheezes noted. No increased work of breathing, no retractions or nasal flaring. Abdomen/GI: Soft, non-tender, with normal bowel sounds. No distension or tympany. No guarding or rebound. No evidence of tenderness throughout. Back: No spinal tenderness. No costovertebral tenderness. Full range of motion. Skin: Warm, dry with normal turgor. Normal color with no rashes, no lesions, and no evidence of cellulitis. Neuro: Awake and alert, GCS 15, oriented to person, place, time, and situation. Cranial nerves II-XII grossly intact. Motor strength 5/5 in all extremities. Sensory grossly intact. Cerebellar exam normal. Normal gait. Psych: Awake, alert, with orientation to person, place and time. Behavior, mood, and affect are within normal limits. 16:56 Musculoskeletal/extremity: Extremities: grossly normal except: noted in the right hand: swelling, tenderness, ROM: limited active range of motion due to pain, right hand, limited passive range of motion due to pain, Circulation is intact in all extremities. Sensation intact. Vital Signs: 15:29 BP 110 / 74; Pulse 70; Resp 16 S; Temp 98.9(TE); Pulse Ox 98% on R/A; Weight 86.18 kg jd3 (R); Height 5 ft. 8 in. (172.72 cm) (R); Pain 8/10; 15:54 BP 107 / 65; Pulse 80; Resp 18; Pulse Ox 99% on R/A; Pain 8/10; ls4 17:16 BP 112 / 74; Pulse 72; Resp 16; Pulse Ox 99% on R/A; Pain 5/10; ls4 15:29 Body Mass Index 28.89 (86.18 kg, 172.72 cm) jd3 MDM: 15:58 Patient medically screened. snw 17:15 Data reviewed: vital signs, nurses notes. Data interpreted: Pulse oximetry: on room air snw is 99 %. Interpretation: normal. Counseling: I had a detailed discussion with the patient and/or guardian regarding: the historical points, exam findings, and any diagnostic results supporting the discharge/admit diagnosis, radiology results, the need for outpatient follow up, for definitive care, to return to the emergency department if symptoms worsen or persist or if there are any questions or concerns that arise at home. Special discussion: Based on the history and exam findings, there is no indication for further emergent testing or inpatient evaluation. I discussed with the patient/guardian the need to see the primary care provider for further evaluation of the symptoms. 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 Exp: ls4 06/28/2022. Lot #: [id number]. } Route: IM; Site: right deltoid; 17:16 Follow up: Response: No adverse reaction ls4 16:27 Drug: [place] 5 mg-325 mg 1 tabs Route: PO; ls4 17:15 Follow up: Response: No adverse reaction; Pain is decreased ls4 16:34 Drug: TORadol 30 mg Route: IM; Site: left deltoid; ls4 17:16 Follow up: Response: No adverse reaction; Pain is decreased ls4 Disposition: 12/21/19 17:13 Discharged to Home. Impression: Localized swelling, mass and lump of skin and subcutaneous tissue. - Condition is Stable. - Discharge Instructions: Hand Contusion, RICE for Routine Care of Injuries, Hand Washing, Hand Pain. - Prescriptions for Mobic 7.5 mg Oral Tablet - take 1 tablet by ORAL route once daily take with food; 20 tablet. Doxycycline Hyclate 100 mg Oral Tablet - take 1 tablet by ORAL route every 12 hours; 20 tablet. - Work release form, Medication Reconciliation Form, Thank You Letter, Antibiotic Education, Prescription Opioid Use form. - Follow up: Emergency Department; When: As needed; Reason: Worsening of condition. Follow up: Private Physician; When: 2 - 3 days; Reason: Recheck today's complaints, Continuance of care, Re-evaluation by your physician. Addendum: 12/24/2019 08:22 Co-signature as Attending Physician, Long Taylor MD I agree with the assessment and k dr plan of care. Signatures: Dispatcher [employer] EDAL Long Taylor MD MD [facility] Barbara Avila, JORDAN MAN-C JORDAN MAN-Csnw Adam Rice RN RN jd3 Brianne Coronado RN RN ls4 Corrections: (The following items were deleted from the chart) 12/20 17:53 17:13 12/21/2019 17:13 Discharged to Home. Impression: Localized swelling, mass and ls4 lump of skin and subcutaneous tissue. Condition is Stable. Forms are Medication Reconciliation Form, Thank You Letter, Antibiotic Education, Prescription Opioid Use. Follow up: Emergency Department; When: As needed; Reason: Worsening of condition. Follow up: Private Physician; When: 2 - 3 days; Reason: Recheck today's complaints, Continuance of care, Re-evaluation by your physician. snw
--- NOTE | 2019-12-21 17:14 | ER ---
Nurse's Notes [facility] Name: Wally Mascorro Age: 29 yrs Sex: Male : 1990 Arrival Date: 12/21/2019 Time: 15:11 Bed 26 Private MD: Diagnosis: Localized swelling, mass and lump of skin and subcutaneous tissue Presentation: 12/20 15:27 Chief complaint: Patient states: "for the last 3 days my right hand has been swelling. jd3 today it started hurting even worse. it hurts to move and it feels like I have fluid in it.". Coronavirus screen: At this time, the client does not indicate any symptoms associated with coronavirus-19. Ebola Screen: Patient negative for fever greater than or equal to 101.5 degrees Fahrenheit, and additional compatible Ebola Virus Disease symptoms. Initial Sepsis Screen: Does the patient meet any 2 criteria? No. Patient's initial sepsis screen is negative. Does the patient have a suspected source of infection? No. Patient's initial sepsis screen is negative. Risk Assessment: Do you want to hurt yourself or someone else? Patient reports no desire to harm self or others. Onset of symptoms was December 21, 2019. 15:27 Method Of Arrival: Ambulatory jd3 15:27 Acuity: LIBRADO 4 jd3 Triage Assessment: 15:30 General: Appears in no apparent distress. comfortable, Behavior is calm, cooperative. ls4 Pain: Complains of pain in right hand Pain does not radiate. Pain currently is 8 out of 10 on a pain scale. Quality of pain is described as aching, pressure, Pain began 2-3 days ago. Neuro: No deficits noted. Cardiovascular: No deficits noted. Respiratory: No deficits noted. Historical: - Allergies: 15:29 No Known Allergies; jd3 - Home Meds: 15:29 None [Active]; jd3 - PMHx: 15:29 None; jd3 - PSHx: 15:29 None; jd3 - Immunization history:: Adult Immunizations up to date. - Social history:: Smoking status: Patient reports the use of cigarette tobacco products, smokes one pack cigarettes per day. Screenin:30 Abuse screen: Denies threats or abuse. Denies injuries from another. Nutritional ls4 screening: No deficits noted. Tuberculosis screening: No symptoms or risk factors identified. Fall Risk None identified. Assessment: 15:54 Reassessment: Patient appears in no apparent distress at this time. Patient and/or ls4 family updated on plan of care and expected duration. Pain level reassessed. Patient is alert, oriented x 3, equal unlabored respirations, skin warm/dry/pink. 16:34 Reassessment: Patient appears in no apparent distress at this time. Patient and/or ls4 family updated on plan of care and expected duration. Pain level reassessed. Patient is alert, oriented x 3, equal unlabored respirations, skin warm/dry/pink. 17:17 Reassessment: Patient appears in no apparent distress at this time. Patient and/or ls4 family updated on plan of care and expected duration. Pain level reassessed. Patient is alert, oriented x 3, equal unlabored respirations, skin warm/dry/pink. Vital Signs: 15:29 BP 110 / 74; Pulse 70; Resp 16 S; Temp 98.9(TE); Pulse Ox 98% on R/A; Weight 86.18 kg jd3 (R); Height 5 ft. 8 in. (172.72 cm) (R); Pain 8/10; 15:54 BP 107 / 65; Pulse 80; Resp 18; Pulse Ox 99% on R/A; Pain 8/10; ls4 17:16 BP 112 / 74; Pulse 72; Resp 16; Pulse Ox 99% on R/A; Pain 5/10; ls4 15:29 Body Mass Index 28.89 (86.18 kg, 172.72 cm) jd3 ED Course: 15:11 Patient arrived in ED. mr 15:15 Barbara Avila [facility]NP-C [facility]. snw 15:15 Long Taylor MD is Attending Physician. snw 15:28 Triage completed. jd3 15:29 Arm band placed on. jd3 15:30 Brianne Coronado, BEBE is Primary Nurse. ls4 15:30 Patient has correct armband on for positive identification. Bed in low position. Call ls4 light in reach. Side rails up X 1. Pulse ox on. NIBP on. Verbal reassurance given. 15:31 No provider procedures requiring assistance completed. ls4 16:57 Hand Right 3 View XRAY In Process Unspecified. 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 Exp: ls4 06/28/2022. Lot #: [id number]. } Route: IM; Site: right deltoid; 17:16 Follow up: Response: No adverse reaction ls4 16:27 Drug: [place] 5 mg-325 mg 1 tabs Route: PO; ls4 17:15 Follow up: Response: No adverse reaction; Pain is decreased ls4 16:34 Drug: TORadol 30 mg Route: IM; Site: left deltoid; ls4 17:16 Follow up: Response: No adverse reaction; Pain is decreased ls4 Outcome: 17:13 Discharge ordered by MD. woody 17:53 Patient left the ED. ls4 Signatures: Dispatcher [employer] EDBarbara Durand FNP-C FNP-Joanie Flores Jonathon RN RN jd3 Brianne Coronado RN RN ls4
--- NOTE | 2019-12-21 17:23 | RAD REPORT ---
EXAM DESCRIPTION: RAD - Hand Right 3 View - 12/21/2019 4:57 pm CLINICAL HISTORY: Pain;Swelling COMPARISON: Hand Right 3 View dated 05/19/2019; Hand Right 3 View dated 04/29/2014 FINDINGS: Moderate soft tissue swelling is seen along the dorsum of the hand. No acute fracture or d islocation. No aggressive marrow lesion.
[2019-12-21 17:59] VITALS: TEMP 98.9
[2019-12-21 18:00] VITALS: O2SAT 99
[2019-12-21 18:02] VITALS: BP 112/74
== END 2019-12-21 17:53 | disposition home or self-care (01) ==
LOC: ER 15:07
DX: R22.31 Localized swelling, mass and lump, right upper limb (principal); F17.210 Nicotine dependence, cigarettes, uncomplicated; Z23 Encounter for immunization
CPT/HCPCS: 90471; 96372; 99283

== ENCOUNTER 2020-12-03 16:42 | Emergency (ER) | payer SELFPAY ==
--- OUTSIDE RECORDS SUMMARY | 2020-12-03 16:45 | XMS REPORT | Continuity of Care Document ---
:1990 Author Organization [facility] t Address [address] [place] [address] Dr. [place] [address] [place] [id number] Care Team Providers Name Role Phone Unavailable Unavailable Unavailable Problems This patient has no known problems. Allergies, Adverse Reactions, Alerts This patient has no known allergies or adverse reactions. Medications This patient has no known medications. Procedures This patient has no known procedures. Results This patient has no known results.
[2020-12-03 17:44] LABS: Absolute Lymphocytes (CBC) 1.5 K/uL (0.7-4.9); Basophils % 0.6 % (0-1.3); Hematocrit 42.4 % (39.6-49.0); Lymphocytes % 12.2 % (15.3-44.8); MPV 7.1 fL (7.6-11.3); RBC Red Blood Cell Count 4.64 M/uL (4.33-5.43)
[2020-12-03] MEDS ORDERED: LORazepam 2 MG/ML VIAL ONE (17:45)
[2020-12-03] MEDS ORDERED: NA CHLORIDE 0.9% 1,000 ML ONE (17:46)
[2020-12-03] MEDS ORDERED: KETOROLAC 30 MG/ML INJ ONE (17:46)
--- NOTE | 2020-12-03 17:56 | RAD REPORT ---
EXAM DESCRIPTION: RAD - Chest Single View - 12/03/2020 5:44 pm CLINICAL HISTORY: seizure, fall COMPARISON: CHEST SINGLE VIEW dated 11/29/2011; CHEST PA AND LAT 2 VIEW dated 03/04/2010; CHEST PA AN D LAT 2 VIEW dated 05/05/2008; CHEST PA AND LAT 2 VIEW dated 08/11/2007 FINDINGS: No evidence of edema or pneumonia. The heart size is within normal limits.No acute osseous abnormality. No significant pleural effusions or pneumothorax. IMPRESSION: No acute cardiopulmonary disease.
[2020-12-03 18:01] LABS: Potassium 4.1 mmol/L (3.5-5.1)
--- NOTE | 2020-12-03 19:11 | RAD REPORT ---
EXAM DESCRIPTION: CT - Head Brain Wo Cont - 12/03/2020 7:01 pm CLINICAL HISTORY: seizure, possible head injury, vomiting COMPARISON: No comparisons TECHNIQUE: All CT scans are performed using dose optimization technique as appropriate and may inclu de automated exposure control or mA/KV adjustment according to patient size. FINDINGS: No intracranial hemorrhage, hydrocephalus or extra-axial fluid collection.No areas of brai n edema or evidence of midline shift. Small air-fluid level in the right maxillary sinus. Trace thickening in the left maxillary sinus. Deondre e of the ethmoid air cells are thickened. The calvarium is intact. IMPRESSION: No acute intracranial abnormality.
--- NOTE | 2020-12-03 20:29 | ER ---
Nurse's Notes [facility] Name: Wally Mascorro Age: 30 yrs Sex: Male : 1990 Arrival Date: 12/03/2020 Time: 16:50 Bed 15 Private MD: Diagnosis: Other seizures;Fall on same level, unspecified Presentation: 12/03 16:59 Chief complaint: EMS states: "pt had a witnessed seizure. family reporting lasting jd3 about 5 min. pt reports having a history of seizures, but has not had one in a very long time. pt denies other medical history. pt was post ictal on our arrival, but the pt has now fully woken up and is A\\T\\O X 4. reports back pain and nausea. family reported pt fell and hit back of head and back during the seizure.". Coronavirus screen: At this time, the client does not indicate any symptoms associated with coronavirus-19. Ebola Screen: Patient negative for fever greater than or equal to 101.5 degrees Fahrenheit, and additional compatible Ebola Virus Disease symptoms. Initial Sepsis Screen: Does the patient meet any 2 criteria? No. Patient's initial sepsis screen is negative. Does the patient have a suspected source of infection? No. Patient's initial sepsis screen is negative. Risk Assessment: Do you want to hurt yourself or someone else? Patient reports no desire to harm self or others. Onset of symptoms was December 03, 2020. 16:59 Method Of Arrival: EMS: [facility] jd3 16:59 Acuity: LIBRADO 3 jd3 Historical: - Allergies: 17:03 No Known Allergies; jd3 - Home Meds: 17:03 None [Active]; jd3 - PMHx: 17:03 Seizure; jd3 - PSHx: 17:03 None; jd3 - Immunization history:: Adult Immunizations up to date. - Social history:: Smoking status: Patient reports the use of cigarette tobacco products, smokes one pack cigarettes per day. Patient uses street drugs, marijuana. - Family history:: not pertinent. - Hospitalizations: : No recent hospitalization is reported. Screenin:05 Abuse screen: Denies threats or abuse. Nutritional screening: No deficits noted. jd3 Tuberculosis screening: No symptoms or risk factors identified. Fall Risk Ambulatory Aid- None/Bed Rest/Nurse Assist (0 pts). Gait- Normal/Bed Rest/Wheelchair (0 pts) Mental Status- Oriented to own ability (0 pts). Total Parmar Fall Scale indicates No Risk (0-24 pts). Assessment: 17:04 General: Appears uncomfortable, Behavior is cooperative, appropriate for age, anxious. jd3 Pain: Complains of pain in head and mid back area Quality of pain is described as aching, tender. Neuro: Level of Consciousness is awake, alert, obeys commands, Oriented to person, place, time, situation, Reports seizure prior to arrival. Cardiovascular: Denies chest pain, Capillary refill < 3 seconds Patient's skin is warm and dry. Respiratory: Airway is patent Respiratory effort is even, unlabored, Respiratory pattern is regular, symmetrical, Denies cough, shortness of breath. GI: No signs and/or symptoms were reported involving the gastrointestinal system. Reports nausea. : No signs and/or symptoms were reported regarding the genitourinary system. EENT: No signs and/or symptoms were reported regarding the EENT system. Derm: Skin is intact, Skin is dry, Skin is normal, Skin temperature is warm small abrasion noted to bridge of nose. Musculoskeletal: Circulation, motion, and sensation intact. Range of motion: intact in all extremities. 17:52 Reassessment: Patient appears in no apparent distress at this time. No changes from jd3 previously documented assessment. Patient and/or family updated on plan of care and expected duration. Pain level reassessed. Patient is alert, oriented x 3, equal unlabored respirations, skin warm/dry/pink. 18:52 Reassessment: Patient appears in no apparent distress at this time. Patient and/or jd3 family updated on plan of care and expected duration. Pain level reassessed. Patient is alert, oriented x 3, equal unlabored respirations, skin warm/dry/pink. provider at bedside. pt resting comfortably in bed with eyes closed and family at bedside. call hawthorne in reach. Patient states feeling better. 19:10 Reassessment: Pt back from CT, appears drowsy, awakens to verbal stimuli, respirations jb4 are even and unlabored with no s/s of pain or distress noted. 20:00 Reassessment: Patient appears in no apparent distress at this time. No changes from jb4 previously documented assessment. Patient and/or family updated on plan of care and expected duration. Pain level reassessed. 20:40 Reassessment: Patient appears in no apparent distress at this time. Patient and/or jb4 family updated on plan of care and expected duration. Pain level reassessed. Patient is alert, oriented x 3, equal unlabored respirations, skin warm/dry/pink. Pt is able to ambulate with steady gait, verbalized understanding of d/c and follow up instructions. Denies questions or concerns. Ambulated out of ED with family with steady gait. Vital Signs: 17:03 BP 116 / 71; Pulse 81; Resp 17 S; Temp 98.0(O); Pulse Ox 97% on R/A; Weight 86.18 kg jd3 (R); Height 5 ft. 8 in. (172.72 cm) (R); Pain 10/10; 18:52 Pulse 77; Resp 16 S; Pulse Ox 100% on R/A; jd3 20:00 Pulse 73; Resp 16; Pulse Ox 98% on R/A; jb4 17:03 Body Mass Index 28.89 (86.18 kg, 172.72 cm) jd3 ED Course: 16:50 Patient arrived in ED. rn 16:51 En Medrano MD is Attending Physician. rn 16:59 Adam Rice, BEBE is Primary Nurse. jd3 17:02 Triage completed. jd3 17:04 Arm band placed on. jd3 17:05 Patient has correct armband on for positive identification. Bed in low position. Call j light in reach. Side rails up X2. Adult w/ patient. Seizure precautions initiated. school bus monitor on. Pulse ox on. NIBP on. 17:44 XRAY Chest (1 view) In Process Unspecified. EDMS 19:01 CT Head Brain wo Cont In Process Unspecified. EDMS 20:40 No provider procedures requiring assistance completed. IV discontinued, intact, jb4 bleeding controlled, No redness/swelling at site. Pressure dressing applied. Administered Medications: 17:38 Drug: Ketorolac 15 mg Route: IVP; Site: right antecubital; jd3 17:39 Drug: Ativan (LORazepam) 1 mg Route: IVP; Site: right antecubital; jd3 17:39 Drug: NS 0.9% 1000 ml Route: IV; Rate: 1000 ml; Site: right antecubital; jd3 Outcome: 20:29 Discharge ordered by . ma2 20:40 Discharged to home ambulatory, with family. jb4 20:40 Condition: stable 20:40 Discharge instructions given to patient, Instructed on discharge instructions, follow up and referral plans. medication usage, Demonstrated understanding of instructions, follow-up care, medications, Prescriptions given X 1. 20:41 Patient left the ED. jb4 Signatures: Dispatcher [employer] EDMS En Medrano MD MD rn Bryson, James, RN RN jb4 Adam Rice RN RN jMaximino Jackson MD MD ma2 Corrections: (The following items were deleted from the chart) 18:53 18:52 Reassessment: Patient appears in no apparent distress at this time. Patient jd3 and/or family updated on plan of care and expected duration. Pain level reassessed. Patient is alert, oriented x 3, equal unlabored respirations, skin warm/dry/pink. provider at bedside. jd3 20:50 20:40 Reassessment: Patient appears in no apparent distress at this time. Patient jb4 and/or family updated on plan of care and expected duration. Pain level reassessed. Patient is alert, oriented x 3, equal unlabored respirations, skin warm/dry/pink. jb4
--- NOTE | 2020-12-03 20:29 | EDPHYS ---
Physician Documentation [facility] Name: Wally Mascorro Age: 30 yrs Sex: Male : 1990 Arrival Date: 12/03/2020 Time: 16:50 Bed 15 Private MD: ED Physician En Medrano HPI: 12/03 18:08 This 30 yrs old Male presents to ER via EMS with unknown complaint. rn 18:08 This 30 yrs old Male presents to ER via EMS with complaints of Seizure. rn 18:08 The patient presents after having a single isolated seizure, that lasted an unknown rn period of time. Character of seizure(s): Loss of consciousness: the patient did not lose consciousness, Motor activity: generalized, Incontinence: none, Apnea: the patient did not experience apnea, Circulation: the patient did not experience evidence of pulse disturbance. Seizure onset: just prior to arrival. Associated injury: Back: pain. Current symptoms: confusion. The patient has experienced similar episodes in the past. The patient has not recently seen a physician. Per EMS patient had witnessed seizure, unknown duration. Patient states posterior ribs and thorax hurt but does not feel like broke anything. Patient does not complain of headache or think he hit his head. Patient was indoors in a closet when this happened. Patient states he has had seizures before has never been on any medication for seizures. States in the past seizures have been related to synthetic marijuana but states no longer uses that. Per EMS report family was concerned that maybe drug-related or withdrawal from a drug. Patient denies any recent drug use.. Historical: - Allergies: 17:03 No Known Allergies; jd3 - Home Meds: 17:03 None [Active]; jd3 - PMHx: 17:03 Seizure; jd3 - PSHx: 17:03 None; jd3 - Immunization history:: Adult Immunizations up to date. - Social history:: Smoking status: Patient reports the use of cigarette tobacco products, smokes one pack cigarettes per day. Patient uses street drugs, marijuana. - Family history:: not pertinent. - Hospitalizations: : No recent hospitalization is reported. ROS: 18:08 Constitutional: Negative for fever, chills, and weight loss, Eyes: Negative for injury, rn pain, redness, and discharge, Neck: Negative for injury, pain, and swelling, Cardiovascular: Negative for palpitations, and edema Respiratory: Negative for shortness of breath, cough, wheezing Abdomen/GI: Negative for abdominal pain, diarrhea, and constipation, Back: Positive posterior rib and back pain MS/Extremity: Negative for injury and deformity, Skin: Negative for injury, rash, and discoloration, Neuro: Negative for headache, weakness, numbness, tingling Exam: 18:08 Constitutional: This is a well developed, well nourished patient who is awake, alert, rn and in no acute distress. Head/Face: Normocephalic, atraumatic. Eyes: Pupils equal round and reactive to light, extra-ocular motions intact. Periorbital areas with no swelling, redness, or edema. Neck: No midline cervical tenderness Cardiovascular: Regular rate and rhythm. No pulse deficits. Respiratory: No increased work of breathing, no retractions or nasal flaring. Abdomen/GI: Soft, nontender Skin: Warm, dry MS/ Extremity: Pulses equal, no cyanosis. Neurovascular intact. Full, normal range of motion. Equal circumference. Neuro: Awake and alert, GCS 15, oriented to person, place, and situation. Cranial nerves II-XII grossly intact. Motor strength 5/5 in all extremities. Sensory grossly intact. Cerebellar exam normal. Vital Signs: 17:03 BP 116 / 71; Pulse 81; Resp 17 S; Temp 98.0(O); Pulse Ox 97% on R/A; Weight 86.18 kg jd3 (R); Height 5 ft. 8 in. (172.72 cm) (R); Pain 10/10; 18:52 Pulse 77; Resp 16 S; Pulse Ox 100% on R/A; jd3 20:00 Pulse 73; Resp 16; Pulse Ox 98% on R/A; jb4 17:03 Body Mass Index 28.89 (86.18 kg, 172.72 cm) jd3 MDM: 16:51 Patient medically screened. rn 18:17 ED course: Family got here states saw patient hit head will add CT head.. rn 18:55 Differential diagnosis: seizure, Drug withdrawal, electrolyte disorder. Transition of rn care: After a detail discussion of the patient's case, care is transferred to Maximino Bejarano MD. 20:28 Data reviewed: vital signs, nurses notes. Counseling: I had a detailed discussion with maCara the patient and/or guardian regarding: the historical points, exam findings, and any diagnostic results supporting the discharge/admit diagnosis, the presence of at least one elevated blood pressure reading (>120/80) during this emergency department visit, the need for outpatient follow up. Response to treatment: the patient's symptoms have markedly improved after treatment. 12/03 16:53 Order name: CBC with Diff; Complete Time: 18:01 rn 12/03 16:53 Order name: XRAY Chest (1 view); Complete Time: 18:01 rn 12/03 16:53 Order name: Basic Metabolic Panel; Complete Time: 18:07 rn 12/03 18:08 Order name: CT Head Brain wo Cont; Complete Time: 19:23 rn 12/03 16:53 Order name: IV Start; Complete Time: 17:24 rn 12/03 16:53 Order name: EKG - Nurse/Tech; Complete Time: 17:24 rn 12/03 16:53 Order name: EKG; Complete Time: 17:15 rn Administered Medications: 17:38 Drug: Ketorolac 15 mg Route: IVP; Site: right antecubital; jd3 17:39 Drug: Ativan (LORazepam) 1 mg Route: IVP; Site: right antecubital; jd3 17:39 Drug: NS 0.9% 1000 ml Route: IV; Rate: 1000 ml; Site: right antecubital; jd3 Disposition Summary: 12/03/20 20:29 Discharge Ordered Location: Home ma2 Condition: Stable ma2 Diagnosis - Other seizures ma2 - Fall on same level, unspecified ma2 Followup: ma2 - With: Private Physician - When: Tomorrow - Reason: If symptoms return Discharge Instructions: - Discharge Summary Sheet ma2 - Head Injury, Adult, [id number] ma2 Forms: - Medication Reconciliation Form ma2 - Thank You Letter ma2 - Antibiotic Education ma2 - Prescription Opioid Use ma2 Prescriptions: - Diclofenac Sodium 75 mg Oral Tablet Sustained Release - take 1 tablet by ORAL route 2 times per day; 30 tablet; Refills: 0, Product ma2 Selection Permitted Signatures: Dispatcher [employer] EDEn Phan MD MD rn Davies, Jonathon, RN RN jd3 Alzahri, Mohammad, MD MD ma2 Corrections: (The following items were deleted from the chart) 17:20 17:13 Chest Single View ordered. EDMS EDMS 20:33 20:29 Acute post-traumatic headache ma2 ma2
--- NOTE | 2020-12-04 07:29 | EKG ---
Test Date: 2020-12-03 Test Time: 17:17:24 Operations Manager Assistant: MICHAEL MEASUREMENT RESULTS: Intervals: Rate: 77 AR: 130 QRSD: 120 QT: 368 QTc: 416 [place]: P: 54 AR: 130 QRS: 78 T: 60 INTERPRETIVE STATEMENTS: Normal sinus rhythm Nonspecific intraventricular conduction delay Borderline ECG Compared to ECG 08/28/2011 14:44:18 No significant changes Electronically Signed On 12-04-20 07:28:15 CDT by Javi Marin
[2020-12-04 15:40] VITALS: BP 116/71; TEMP 98
[2020-12-04 15:43] VITALS: O2SAT 98
== END 2020-12-03 20:41 | disposition home or self-care (01) ==
LOC: ER 16:42
DX: G40.89 Other seizures (principal); W18.30XA Fall on same level, unspecified, initial encounter; F17.210 Nicotine dependence, cigarettes, uncomplicated
CPT/HCPCS: 36415; 70450; 71045; 80048; 85025; 93005; 96374; 96375; 99284; J7030